=== PATIENT | male | born 1960 | race African-American/Black ===

== ENCOUNTER 2023-07-29 18:41 | Inpatient (IN) | payer MEDICARE, OTHER ==
[~2023-07-29] VITALS: Ht 177.8 cm; Wt 64.4 kg
[2023-07-29] MEDS ORDERED: DOCU100T2 PO (19:45)
[2023-07-29] MEDS ORDERED: PHEN60TA11 PO (19:45)
[2023-07-29] MEDS ORDERED: NA P133E RC (19:45)
[2023-07-29] MEDS ORDERED: ASCO500C18 PO (19:45)
[2023-07-29] MEDS ORDERED: AMLO10TA59 PO (19:45)
[2023-07-29] MEDS ORDERED: LISI30TA4 PO (19:45)
[2023-07-29] MEDS ORDERED: PEG15DRO5 OP (19:45)
[2023-07-29] MEDS ORDERED: ASPI81TA31 PO (19:45)
[2023-07-29] MEDS ORDERED: HYDR-4077 PO (19:45)
[2023-07-29] MEDS ORDERED: BISA10SU61 RC (19:45)
[2023-07-29] MEDS ORDERED: CHOL100034 PO (19:45)
[2023-07-29] MEDS ORDERED: MAGN400O6 PO (19:45)
[2023-07-29] MEDS ORDERED: ACET-3117 PO (19:45)
[2023-07-29 20:02] LABS: DIFFERENTIAL COMMENT 0; RED BLOOD CELL COUNT(AUTO) 5.57 MIL/uL (4.06-5.63); RED CELL DISTRIBUTION WIDTH 15.2 % (12.1-16.2)
[2023-07-29 20:09] LABS: CARBON DIOXIDE 29 mmol/L (21-32); CHLORIDE 111 mmol/L (98-107); CREATININE 1.1 mg/dL (0.6-1.3); GLUCOSE 97 mg/dL (74-106); SODIUM SERUM 148 mmol/L (136-145); UREA NITROGEN, BLOOD 18 mg/dL (7-18)
[2023-07-29 20:10] LABS: BASOPHILS % (AUTO) 1.6 % (0.0-2.0); EOSINOPHILS # (AUTO) 0.1 K/uL (0.0-0.7); EOSINOPHILS % (AUTO) 3.5 % (0.0-7.0); HEMATOCRIT 43.2 % (36.7-47.1); LYMPHOCYTES # (AUTO) 0.9 K/uL (0.8-4.8); LYMPHOCYTES % (AUTO) 29.9 % (20.5-51.5); MEAN CORPUSCULAR HEMOGLOBIN 25.2 uug (23.8-33.4); MEAN CORPUSCULAR HGB CONC 33 g/dL (32.5-36.3); MEAN CORPUSCULAR VOLUME 77.6 fL (73.0-96.2); MONOCYTES # (AUTO) 0.4 K/uL (0.1-1.30); MONOCYTES % (AUTO) 12.3 % (0.0-11.0); NEUTROPHILS # (AUTO) 1.6 K/uL (1.8-8.9); NEUTROPHILS % (AUTO) 52.7 % (38.5-71.5); PLATELET COUNT (AUTO) 171 K/uL (152-348); WHITE BLOOD COUNT (AUTO) 3.1 K/uL (3.6-10.2)
[2023-07-29 20:18] LABS: ALANINE AMINOTRANSFERASE 22 U/L (16-63); ALBUMIN 3.2 g/dL (3.4-5.0); ALKALINE PHOSPHATASE 82 U/L (50-136); ASPARTATE AMINOTRANSFERASE 13 U/L (15-37); BILIRUBIN,TOTAL 0.2 mg/dL (0.2-1.0); TOTAL PROTEIN, SERUM 7.2 g/dL (6.4-8.2)
[2023-07-29 20:21] LABS: ETHANOL < 3 MG/DL (0-10)
[2023-07-29 20:30] LABS: BILIRUBIN,DIRECT 0.1 mg/dL (0.0-0.2)
[2023-07-29] MEDS: IV NORMAL SALINE 1000 ML BAG IV ONE ×2 (21:20→21:36)
[2023-07-29 21:30] LABS: *BILIRUBIN,URIN NEGATIVE (NEGATIVE); *BLOOD, URINE NEGATIVE (NEGATIVE); *CLARITY,URINE CLEAR (CLEAR); *COLOR,URINE YELLOW (YELLOW); *KETONES,URINE NEGATIVE (NEGATIVE); *PROTEIN,URINE NEGATIVE (NEGATIVE); *UROBILINOGEN,URINE 0.2 E.U./dl (NORMAL); LEUKOCYTE ESTERASE ,URINE NEGATIVE (NEGATIVE); NITRITE, URINE NEGATIVE (NEGATIVE); PH,URINE 5.5 (5.0-8.0); UGLUCOSE NEGATIVE (NEGATIVE)
[2023-07-29 21:38] LABS: *AMPHETAMINE, URINE NEGATIVE (NEGATIVE); *BARBITURATE, URINE POSITIVE (NEGATIVE); *BENZODIAZEPINE, URINE NEGATIVE (NEGATIVE); *CANNABINOID, URINE NEGATIVE (NEGATIVE); *COCCAINE, URINE NEGATIVE (NEGATIVE); *OPIATE, URINE NEGATIVE (NEGATIVE); *PHENCYCLIDINE SCREEN,URINE NEGATIVE (NEGATIVE)
[2023-07-29 21:39] LABS: FENTANYL, URINE NEGATIVE (NEGATIVE)
[2023-07-29] MEDS ORDERED: NITROGLYCERIN OINT 1 GM PACKET TP ONE ×2 (22:10→22:15)
[2023-07-30 00:20] VITALS: BP 182/110; TEMP 97.9
[2023-07-30] MEDS ORDERED: MAGNESIUM HYDROXIDE 30 ML LIQUID UDC PO PRN ×2 (00:45→01:15)
[2023-07-30] MEDS ORDERED: MAG HYDROX/AL HYDROX/SIMETH 30 ML LIQUID UDC PO PRN (00:45)
[2023-07-30] MEDS ORDERED: ACETAMINOPHEN 325 MG TABLET PO PRN (00:45)
[2023-07-30] MEDS ORDERED: hydrALAZINE HCL 50 MG TABLET PO ONE (00:45)
[2023-07-30] MEDS ORDERED: LORAZEPAM 0.5 MG TABLET PO PRN (00:45)
[2023-07-30] MEDS ORDERED: BISACODYL 10 MG SUPP.RECT RC PRN (01:15)
[2023-07-30] MEDS ORDERED: FLEET ENEMA 133 ML BOTTLE RC PRN (01:15)
[2023-07-30] MEDS ORDERED: DOCUSATE SODIUM 100 MG CAPSULE PO PRN (01:30)
[2023-07-30 02:15] VITALS: BP 130/80
[2023-07-30] MEDS: hydrALAZINE HCL 50 MG TABLET PO SCH ×4 (06:00→23:53)
[2023-07-30 08:35] VITALS: BP 143/100; TEMP 98
[2023-07-30] MEDS ORDERED: POLYVINYL ALCOHOL OPHT DROPS 15 ML BOTTLE OP SCH (09:00)
[2023-07-30] MEDS: ASPIRIN 81 MG TAB.CHEW PO SCH (09:05)
[2023-07-30] MEDS: AMLODIPINE 10 MG TABLET PO SCH (09:05)
[2023-07-30] MEDS: PHENOBARBITAL 32.4 MG TABLET PO SCH ×2 (09:05→17:00)
[2023-07-30] MEDS: ASCORBIC ACID 500 MG TABLET PO SCH ×2 (09:05→17:00)
[2023-07-30] MEDS: CHOLECALCIFEROL 1,000 UNIT TABLET PO SCH (09:05)
[2023-07-30] MEDS: LISINOPRIL 10 MG TABLET PO SCH (09:06)
[2023-07-30] MEDS: POLYVINYL ALCOHOL OPHT DROPS 15 ML BOTTLE EACHEYE SCH (17:00)
[2023-07-30] MEDS ORDERED: REMEDY ESSENTIAL ZINC PASTE 113 GM TOP PRN (17:00)
[2023-07-30 17:47] VITALS: BP 104/72; TEMP 97.6; O2SAT 96
[2023-07-30] MEDS: DIVALPROEX 125 MG TABLET.DR PO SCH (18:30)
[2023-07-30 20:00] VITALS: BP 114/73; TEMP 98.1; O2SAT 97
[2023-07-31] MEDS: hydrALAZINE HCL 50 MG TABLET PO SCH ×3 (05:43→17:26)
[2023-07-31 08:04] VITALS: BP 107/75; TEMP 98.3; O2SAT 98
[2023-07-31] MEDS: CHOLECALCIFEROL 1,000 UNIT TABLET PO SCH (08:58)
[2023-07-31] MEDS: ASPIRIN 81 MG TAB.CHEW PO SCH (08:59)
[2023-07-31] MEDS: PHENOBARBITAL 32.4 MG TABLET PO SCH ×2 (08:59→16:19)
[2023-07-31] MEDS: AMLODIPINE 10 MG TABLET PO SCH (08:59)
[2023-07-31] MEDS: ASCORBIC ACID 500 MG TABLET PO SCH ×2 (08:59→16:19)
[2023-07-31] MEDS: DIVALPROEX 125 MG TABLET.DR PO SCH ×2 (09:00→16:19)
[2023-07-31] MEDS: LISINOPRIL 10 MG TABLET PO SCH (09:00)
[2023-07-31] MEDS: POLYVINYL ALCOHOL OPHT DROPS 15 ML BOTTLE EACHEYE SCH ×2 (09:06→16:19)
[2023-07-31 15:04] VITALS: BP 129/83; TEMP 98.3; O2SAT 100
[2023-07-31 20:00] VITALS: BP 118/91; TEMP 98.3; O2SAT 100
[2023-08-01] MEDS: hydrALAZINE HCL 50 MG TABLET PO SCH ×4 (00:03→18:11)
[2023-08-01 08:32] VITALS: BP 137/78; TEMP 99; O2SAT 98
[2023-08-01] MEDS: DIVALPROEX 125 MG TABLET.DR PO SCH ×2 (08:45→16:45)
[2023-08-01] MEDS: PHENOBARBITAL 32.4 MG TABLET PO SCH ×2 (08:45→16:45)
[2023-08-01] MEDS: ASCORBIC ACID 500 MG TABLET PO SCH ×2 (08:45→16:45)
[2023-08-01] MEDS: CHOLECALCIFEROL 1,000 UNIT TABLET PO SCH (08:45)
[2023-08-01] MEDS: ASPIRIN 81 MG TAB.CHEW PO SCH (08:45)
[2023-08-01] MEDS: AMLODIPINE 10 MG TABLET PO SCH (08:46)
[2023-08-01] MEDS: POLYVINYL ALCOHOL OPHT DROPS 15 ML BOTTLE EACHEYE SCH ×2 (08:46→16:51)
[2023-08-01] MEDS: LISINOPRIL 10 MG TABLET PO SCH (08:46)
[2023-08-01] MEDS: ACETAMINOPHEN 325 MG TABLET PO PRN (08:51)
[2023-08-01 16:00] VITALS: BP 114/86; TEMP 98; O2SAT 98
[2023-08-01 20:03] VITALS: BP 126/74; TEMP 98.2; O2SAT 96
[2023-08-02] MEDS: hydrALAZINE HCL 50 MG TABLET PO SCH ×5 (02:44→17:13)
[2023-08-02] MEDS: TEMAZEPAM 7.5 MG CAPSULE PO PRN ×2 (02:46→21:38)
[2023-08-02 07:56] VITALS: BP 126/69; TEMP 99.5; O2SAT 98
[2023-08-02 08:00] VITALS: BP 126/69; TEMP 98.6; O2SAT 98
[2023-08-02] MEDS: LORAZEPAM 0.5 MG TABLET PO SCH ×4 (08:45→17:00)
[2023-08-02] MEDS: LISINOPRIL 10 MG TABLET PO SCH ×2 (09:00→09:22)
[2023-08-02] MEDS: CHOLECALCIFEROL 1,000 UNIT TABLET PO SCH ×2 (09:00→09:21)
[2023-08-02] MEDS: ASCORBIC ACID 500 MG TABLET PO SCH ×3 (09:00→17:00)
[2023-08-02] MEDS: POLYVINYL ALCOHOL OPHT DROPS 15 ML BOTTLE EACHEYE SCH ×2 (09:00→17:00)
[2023-08-02] MEDS: AMLODIPINE 10 MG TABLET PO SCH ×2 (09:00→09:21)
[2023-08-02] MEDS: ASPIRIN 81 MG TAB.CHEW PO SCH ×2 (09:00→09:21)
[2023-08-02] MEDS: DIVALPROEX 125 MG TABLET.DR PO SCH ×3 (09:00→17:00)
[2023-08-02] MEDS: PHENOBARBITAL 32.4 MG TABLET PO SCH ×3 (09:00→17:00)
[2023-08-02] MEDS ORDERED: IPRATROPIUM BROMIDE 0.5 MG/2.5 ML NEBU NEB PRN (14:30)
[2023-08-02] MEDS ORDERED: ALBUTEROL SULFATE 1.25 MG/3 ML NEBU NEB PRN (14:30)
[2023-08-02 16:23] VITALS: BP 138/82; TEMP 99.5; O2SAT 95
[2023-08-02 17:39] VITALS: TEMP 99.3; O2SAT 95
[2023-08-02] MEDS: AZITHROMYCIN 250 MG TABLET PO SCH (18:00)
[2023-08-02 19:53] VITALS: BP 132/78; TEMP 100.2; O2SAT 95
[2023-08-02] MEDS: ACETAMINOPHEN 325 MG TABLET PO PRN (21:26)
[2023-08-03] MEDS: hydrALAZINE HCL 50 MG TABLET PO SCH ×4 (06:10→17:41)
[2023-08-03 07:39] VITALS: BP 110/60; TEMP 98.8; O2SAT 98
[2023-08-03] MEDS: LORAZEPAM 0.5 MG TABLET PO SCH (08:14)
[2023-08-03] MEDS: AMLODIPINE 10 MG TABLET PO SCH (08:15)
[2023-08-03] MEDS: LISINOPRIL 10 MG TABLET PO SCH (08:16)
[2023-08-03] MEDS: ASCORBIC ACID 500 MG TABLET PO SCH ×2 (08:16→17:03)
[2023-08-03] MEDS: ASPIRIN 81 MG TAB.CHEW PO SCH (08:17)
[2023-08-03] MEDS: POLYVINYL ALCOHOL OPHT DROPS 15 ML BOTTLE EACHEYE SCH ×2 (08:17→17:42)
[2023-08-03] MEDS: DIVALPROEX 125 MG TABLET.DR PO SCH ×2 (08:17→17:02)
[2023-08-03] MEDS: PHENOBARBITAL 32.4 MG TABLET PO SCH ×2 (08:17→17:03)
[2023-08-03] MEDS: CHOLECALCIFEROL 1,000 UNIT TABLET PO SCH (08:17)
[2023-08-03 08:18] LABS: BASOPHILS # (AUTO) 0.1 K/UL (0.0-0.2); BASOPHILS % (AUTO) 1.1 % (0.0-2.0); EOSINOPHILS # (AUTO) 0.1 K/uL (0.0-0.7); EOSINOPHILS % (AUTO) 2.1 % (0.0-7.0); HEMATOCRIT 45.6 % (36.7-47.1); HEMOGLOBIN 15.2 g/dL (12.5-16.3); LYMPHOCYTES # (AUTO) 1.3 K/uL (0.8-4.8); LYMPHOCYTES % (AUTO) 19.7 % (20.5-51.5); MEAN CORPUSCULAR HEMOGLOBIN 25.7 uug (23.8-33.4); MEAN CORPUSCULAR HGB CONC 33 g/dL (32.5-36.3); MEAN CORPUSCULAR VOLUME 77.4 fL (73.0-96.2); MONOCYTES # (AUTO) 0.9 K/uL (0.1-1.30); MONOCYTES % (AUTO) 13.3 % (0.0-11.0); NEUTROPHILS # (AUTO) 4.3 K/uL (1.8-8.9); NEUTROPHILS % (AUTO) 63.8 % (38.5-71.5); PLATELET COUNT (AUTO) 180 K/uL (152-348); RED BLOOD CELL COUNT(AUTO) 5.89 MIL/uL (4.06-5.63); RED CELL DISTRIBUTION WIDTH 15.3 % (12.1-16.2); WHITE BLOOD COUNT (AUTO) 6.8 K/uL (3.6-10.2)
[2023-08-03 08:29] LABS: DIFFERENTIAL COMMENT 1
[2023-08-03 08:36] LABS: ALBUMIN 2.8 g/dL (3.4-5.0); BILIRUBIN,TOTAL 0.6 mg/dL (0.2-1.0); CALCIUM 8.9 mg/dL (8.5-10.1); CREATININE 0.9 mg/dL (0.6-1.3); TOTAL PROTEIN, SERUM 7.5 g/dL (6.4-8.2)
[2023-08-03 15:33] VITALS: BP 110/71; TEMP 97.4; O2SAT 98
[2023-08-03] MEDS ORDERED: LORAZEPAM 0.5 MG TABLET PO SCH (17:00)
[2023-08-03] MEDS: AZITHROMYCIN 250 MG TABLET PO SCH (17:41)
[2023-08-03] MEDS ORDERED: IV NS 1000 ML 1,000 ML IV PRN (19:45)
[2023-08-03 20:05] VITALS: BP 125/84; TEMP 98.8; O2SAT 95
== END 2023-08-03 21:43 | disposition short-term general hospital (02) | DRG 885 ==
LOC: ER 18:46 → GPS 23:47
PROVIDERS: ADMIT Psychiatry & Neurology Psychosomatic Medicine; ATTEND Nurse Practitioner Acute Care
DX: F39 Unspecified mood [affective] disorder (principal); J44.89 Other specified chronic obstructive pulmonary disease; E87.0 Hyperosmolality and hypernatremia; G93.40 Encephalopathy, unspecified; E44.1 Mild protein-calorie malnutrition; E87.5 Hyperkalemia; I10 Essential (primary) hypertension; E86.0 Dehydration; E87.8 Other disorders of electrolyte and fluid balance, not elsewhere classified; R62.7 Adult failure to thrive; G40.909 Epilepsy, unspecified, not intractable, without status epilepticus; E78.5 Hyperlipidemia, unspecified; Z91.148 Patient's other noncompliance with medication regimen for other reason; Z88.0 Allergy status to penicillin; Z86.73 Personal history of transient ischemic attack (TIA), and cerebral infarction without residual deficits; E88.09 Other disorders of plasma-protein metabolism, not elsewhere classified; R41.9 Unspecified symptoms and signs involving cognitive functions and awareness
CPT/HCPCS: 36415; 70450; 71045; 84484; 85025; 93005; A4663; C1758; G0480; J7040; Q0144

== ENCOUNTER 2023-08-03 21:03 | Inpatient (IN) | payer MEDICARE, OTHER ==
[~2023-08-03] VITALS: Ht 154.9 cm; Wt 72.1 kg
[~2023-08-03 21:03] MED LIST: ACET-3117 PO; AMLO10TA59 PO; ASCO500C18 PO; ASPI81TA31 PO; BISA10SU61 RC; CHOL100034 PO; DOCU100T2 PO; HYDR-4077 PO; LISI30TA4 PO; MAGN400O6 PO; NA P133E RC; PEG15DRO5 OP; PHEN60TA11 PO
[2023-08-03 21:55] VITALS: BP 102/64; TEMP 98.5; O2SAT 95
[2023-08-03] MEDS ORDERED: MAGNESIUM HYDROXIDE 30 ML LIQUID UDC PO PRN (22:45)
[2023-08-03] MEDS ORDERED: REMEDY ESSENTIAL ZINC PASTE 113 GM TP PRN (22:45)
[2023-08-03] MEDS ORDERED: LORAZEPAM 1 MG TABLET PO PRN (22:45)
[2023-08-03] MEDS ORDERED: ONDANSETRON 4 MG/2 ML VIAL IV PRN (22:45)
[2023-08-03] MEDS ORDERED: ACETAMINOPHEN 325 MG TABLET PO PRN (22:45)
[2023-08-03] MEDS: IV D5 1/2 NS 1000 ML 1,000 ML IV PRN (22:52)
[2023-08-03] MEDS: ENOXAPARIN SODIUM 40 MG/0.4 ML DISP.SYRIN SQ SCH (22:57)
[2023-08-04 04:00] VITALS: BP 108/70; TEMP 98.7; O2SAT 94
[2023-08-04 07:59] LABS: BASOPHILS # (AUTO) 0.1 K/UL (0.0-0.2); BASOPHILS % (AUTO) 2.4 % (0.0-2.0); EOSINOPHILS # (AUTO) 0.1 K/uL (0.0-0.7); EOSINOPHILS % (AUTO) 2.4 % (0.0-7.0); HEMATOCRIT 35.5 % (36.7-47.1); HEMOGLOBIN 11.4 g/dL (12.5-16.3); MEAN CORPUSCULAR HEMOGLOBIN 25.1 uug (23.8-33.4); MEAN CORPUSCULAR HGB CONC 32 g/dL (32.5-36.3); MEAN CORPUSCULAR VOLUME 78.3 fL (73.0-96.2); MONOCYTES # (AUTO) 0.6 K/uL (0.1-1.30); MONOCYTES % (AUTO) 16.4 % (0.0-11.0); NEUTROPHILS # (AUTO) 2.1 K/uL (1.8-8.9); NEUTROPHILS % (AUTO) 53.8 % (38.5-71.5); PLATELET COUNT (AUTO) 167 K/uL (152-348); RED BLOOD CELL COUNT(AUTO) 4.54 MIL/uL (4.06-5.63); RED CELL DISTRIBUTION WIDTH 15.6 % (12.1-16.2); WHITE BLOOD COUNT (AUTO) 3.9 K/uL (3.6-10.2)
[2023-08-04 08:08] LABS: DIFFERENTIAL COMMENT 1
[2023-08-04] MEDS: CEFEPIME HCL 1 G in IV DEXTROSE 5% 50 ML IV SCH ×2 (09:58→22:13)
[2023-08-04 11:00] LABS: CALCIUM 8.6 mg/dL (8.5-10.1); CREATININE 0.9 mg/dL (0.6-1.3); MAGNESIUM 2.3 mg/dL (1.8-2.4); PHOSPHOROUS 3.6 mg/dL (2.5-4.9)
[2023-08-04 11:50] VITALS: BP 122/79; TEMP 98; O2SAT 97
[2023-08-04] MEDS: ASPIRIN 81 MG TAB.CHEW PO SCH (12:07)
[2023-08-04] MEDS: AMLODIPINE 10 MG TABLET PO SCH (12:08)
[2023-08-04 16:07] VITALS: BP 127/79; TEMP 98.4; O2SAT 96
[2023-08-04] MEDS: IV D5 1/2 NS 1000 ML 1,000 ML IV PRN (17:55)
[2023-08-04 19:50] VITALS: BP 76/61; TEMP 99; O2SAT 99
[2023-08-04] MEDS: ENOXAPARIN SODIUM 40 MG/0.4 ML DISP.SYRIN SQ SCH (22:12)
[2023-08-04 22:30] LABS: BAND % (MANUAL) 2 % (0-10); EOSINOPHILS % (MANUAL) 2 % (0-8); LYMPHOCYTES % (MANUAL) 28 % (20-40); MONOCYTES % (MANUAL) 12 % (2-10)
[2023-08-04 22:31] LABS: NEUTROPHILS % (MANUAL) 56 % (42-75); PLATELET ESTIMATE ADEQUATE
[2023-08-05 05:15] VITALS: BP 165/104; TEMP 97.6; O2SAT 94
[2023-08-05] MEDS: CEFEPIME HCL 1 G in IV DEXTROSE 5% 50 ML IV SCH ×2 (10:51→21:12)
[2023-08-05] MEDS: IV D5 1/2 NS 1000 ML 1,000 ML IV PRN (10:51)
[2023-08-05] MEDS: AMLODIPINE 10 MG TABLET PO SCH (10:52)
[2023-08-05] MEDS: ASPIRIN 81 MG TAB.CHEW PO SCH ×2 (10:52→11:08)
[2023-08-05 11:27] VITALS: BP 143/80; TEMP 98.2; O2SAT 98
[2023-08-05 15:47] VITALS: BP 130/84; TEMP 98.2; O2SAT 98
[2023-08-05 20:30] VITALS: BP 132/72; TEMP 97.8; O2SAT 95
[2023-08-05] MEDS: ENOXAPARIN SODIUM 40 MG/0.4 ML DISP.SYRIN SQ SCH (21:12)
[2023-08-06] MEDS: IV D5 1/2 NS 1000 ML 1,000 ML IV PRN (00:36)
[2023-08-06 06:00] VITALS: BP 132/99; TEMP 97.5; O2SAT 99
[2023-08-06] MEDS: ASPIRIN 81 MG TAB.CHEW PO SCH (09:08)
[2023-08-06] MEDS: AMLODIPINE 10 MG TABLET PO SCH (09:08)
[2023-08-06] MEDS: CEFEPIME HCL 1 G in IV DEXTROSE 5% 50 ML IV SCH (09:08)
[2023-08-06] MEDS: PHENOBARBITAL 32.4 MG TABLET PO SCH ×2 (10:07→17:00)
[2023-08-06] MEDS: DIVALPROEX 125 MG TABLET.DR PO SCH (13:00)
[2023-08-06 20:38] VITALS: BP 132/76; TEMP 98.6; O2SAT 95
[2023-08-06] MEDS: ENOXAPARIN SODIUM 40 MG/0.4 ML DISP.SYRIN SQ SCH (23:06)
[2023-08-07 04:45] VITALS: BP 147/85; TEMP 98.5; O2SAT 96
[2023-08-07] MEDS ORDERED: DIVALPROEX SPRINKLE 125 MG CAP.SPRINK PO SCH (09:00)
[2023-08-07 09:05] VITALS: BP 147/85
[2023-08-07] MEDS: ASPIRIN 81 MG TAB.CHEW PO SCH (09:05)
[2023-08-07] MEDS: AMLODIPINE 10 MG TABLET PO SCH (09:05)
[2023-08-07] MEDS: PHENOBARBITAL 32.4 MG TABLET PO SCH (09:05)
[2023-08-07] MEDS: DIVALPROEX 125 MG TABLET.DR PO SCH (09:06)
== END 2023-08-07 11:46 | DRG 640 ==
LOC: MEDSURG3 21:30
PROVIDERS: ADMIT Nurse Practitioner Acute Care; ATTEND Nurse Practitioner Acute Care
DX: R62.7 Adult failure to thrive (principal); G93.41 Metabolic encephalopathy; F03.93 Unspecified dementia, unspecified severity, with mood disturbance; F03.94 Unspecified dementia, unspecified severity, with anxiety; Z68.30 Body mass index [BMI] 30.0-30.9, adult; E87.5 Hyperkalemia; Z88.0 Allergy status to penicillin; F09 Unspecified mental disorder due to known physiological condition; E86.0 Dehydration; I10 Essential (primary) hypertension; Z91.199 Patient's noncompliance with other medical treatment and regimen due to unspecified reason
CPT/HCPCS: 36415; 70030-TC; 71045; 83735; 84100; 85025; A4663; G0378; J0692; J1650